=== PATIENT | male | born 1945 ===

== ENCOUNTER → 2018-03-09 06:35 | Outpatient (CLI) | payer OTHER | END | disposition home or self-care (01) | LOC: LAB 06:35 | DX: R97.20 Elevated prostate specific antigen [PSA] (principal) ==

== ENCOUNTER 2018-04-06 07:24 | Outpatient (CLI) | payer OTHER | END 2018-04-06 07:46 | disposition home or self-care (01) | LOC: SONOGRAMA 07:24 | DX: R97.20 Elevated prostate specific antigen [PSA] (principal) ==